=== PATIENT | male | born 1995 | race Caucasian/White ===

== ENCOUNTER 2019-01-24 22:16 | Emergency (ER) | payer SELFPAY ==
[2019-01-24 22:35] VITALS: BP 115/72; PULSE 114; TEMP 102.9; BMI 23.8
[2019-01-24] MEDS ORDERED: SODIUM CHLORIDE 1,000 ML IV STA (23:39)
[2019-01-24] MEDS ORDERED: ACETAMINOPHEN 1000 MG/100 ML VIAL (NON FORMULARY) IVPB ONE (23:39)
[2019-01-25] MEDS ORDERED: ACETAMINOPHEN INJECTION 100 ML IVPB ONE (00:37)
--- NOTE | 2019-01-25 00:46 | PDOC ---
History of Present Illness - General Chief Complaint: SIRS, Suspected/Possible Stated Complaint: FEVER/VOMITING Time Seen by Provider: 01/24/19 23:11 History Source: Patient - History of Present Illness Initial Comments: 01/25/19 00:42 Patient is a 23M with no significant medical history here today complaining of fever. Patient is concerned that several abrasions on his leg are infected. Endorses associated chills. Denies headache, neck pain, chest pain, cough, shortness of breath, dysuria, back pain and abdominal pain. Patient got abrasions on leg from sliding on ground while playing soccer. No sick contacts. No recent travel. Up to date on vaccines. Past History - Past Medical History Allergies/Adverse Reactions: Allergies Allergy/AdvReac Type Severity Reaction Status Date / Time No Known Allergies Allergy Verified 01/24/19 22:32 COPD: No - Suicide/Smoking/Psychosocial Hx Smoking History: Never smoked Review of Systems - Review of Systems Able to Perform ROS?: Yes Comments:: 01/25/19 00:43 GENERAL/CONSTITUTIONAL: +fever +chills. No weakness. HEAD, EYES, EARS, NOSE AND THROAT: No change in vision. No ear pain or discharge. No sore throat. CARDIOVASCULAR: No chest pain or shortness of breath RESPIRATORY: No cough, wheezing, or hemoptysis. GASTROINTESTINAL: No nausea, vomiting, diarrhea or constipation. GENITOURINARY: No dysuria, frequency, or change in urination. MUSCULOSKELETAL: No joint or muscle swelling or pain. No neck or back pain. SKIN: No rash NEUROLOGIC: No headache, vertigo, loss of consciousness, or change in strength/ sensation. ENDOCRINE: No increased thirst. No abnormal weight change HEMATOLOGIC/LYMPHATIC: No anemia, easy bleeding, or history of blood clots. ALLERGIC/IMMUNOLOGIC: No hives or skin allergy. *Physical Exam - Vital Signs Last Vital Signs Temp Pulse Resp BP Pulse Ox 102.9 F H 114 H 18 115/72 97 01/24/19 22:32 01/24/19 22:32 01/24/19 22:32 01/24/19 22:32 01/24/19 22:32 - Physical Exam Comments: 01/25/19 00:44 GENERAL: Awake, alert, and fully oriented, in no acute distress HEAD: No signs of trauma, normocephalic, atraumatic EYES: PERRLA, EOMI, sclera anicteric, conjunctiva clear ENT: Auricles normal inspection, hearing grossly normal, nares patent, oropharynx clear without exudates. Moist mucosa NECK: Normal ROM, supple, no lymphadenopathy, JVD, or masses LUNGS: No distress, speaks full sentences, clear to auscultation bilaterally HEART: Regular rate and rhythm, normal S1 and S2, no murmurs, rubs or gallops, peripheral pulses normal and equal bilaterally. ABDOMEN: Soft, nontender, normoactive bowel sounds. No guarding, no rebound. No masses EXTREMITIES: Normal inspection, Normal range of motion, no edema. No clubbing or cyanosis. NEUROLOGICAL: Cranial nerves II through XII grossly intact. Normal speech, normal gait, no focal sensorimotor deficits SKIN: Warm, Dry, several large abrasions on lateral left leg. Well healing, not warm, red or tender. ED Treatment Course - LABORATORY CBC & Chemistry Diagram: 01/25/19 00:41 01/25/19 00:41 Medical Decision Making - Medical Decision Making 01/25/19 00:45 Patient is 23M here today with fever. No signs of infection on abrasions. No clear source. Patient appears well. Will workup with cbc, cmp, lactate, blood cultures. Do not suspect serious infection at this time. Will treat with fluids , tylenol, and re-evaluate. 01/25/19 02:49 CBC normal. CMP shows mild elevations of liver enzymes. No abdominal pain on re-examination. Vital signs normalized. CXR clear. Will discharge home with diagnosis of fever. Patient given return precautions. Suspect primary viral process. *DC/Admit/Observation/Transfer Diagnosis at time of Disposition: Fever - Discharge Dispostion Disposition: HOME Condition at time of disposition: Good Decision to Admit order: No - Referrals - Patient Instructions Printed Discharge Instructions: DI for Fever (Symptom) -- Adult Additional Instructions: Please follow up with your primary care physician in the next 2-3 days. Please return if you have any new, worsening or concerning symptoms, especially increasing fever, headache, vomiting or abdominal pain. Albin un seguimiento con lozano mdico de atencin primaria en los prximos 2-3 mendez. Regrese si tiene algn sntoma nuevo, que empeora o preocupa, especialmente aumento de fiebre, dolor de ángel, vmitos o dolor abdominal. Print Language: SLOVAK - Post Discharge Activity
[2019-01-25 00:58] LABS: HEMATOCRIT 38.7 % (35.4-49); HEMOGLOBIN 13.1 GM/dL (11.7-16.9); MCHC 33.9 g/dl (32.0-35.9); MEAN CELL VOLUME 91.4 fl (80-96); MEAN PLT VOLUME 9.5 fl (7.5-11.1); PLATELET COUNT 241 K/MM3 (134-434); RBC 4.23 M/mm3 (4.00-5.60); RDW 14.8 % (11.9-15.9); WHITE BLOOD COUNT 10.3 K/mm3 (4.0-10.0)
[2019-01-25 01:23] LABS: ALBUMIN 2.7 g/dl (3.4-5.0); BILIRUBIN,TOTAL 0.7 mg/dL (0.2-1); BLOOD UREA NITROGEN 8.3 mg/dL (7-18); CALCIUM 8.2 mg/dL (8.5-10.1); CREATININE 0.8 mg/dL (0.55-1.3); POTASSIUM 3.5 mmol/L (3.5-5.1); TOT PROT 6.1 g/dl (6.4-8.2)
--- NOTE | 2019-01-25 02:55 | PDOC ---
Documentation entered by Steve Christianson SCRIBE, acting as scribe for Elizabeth Barrientos DO. Elizabeth Barrientos DO: This documentation has been prepared by the Sammy figueroa Elijah, SCRIBE, under my direction and personally reviewed by me in its entirety. I confirm that the documentation accurately reflects all work , treatment, procedures, and medical decision making performed by me. Attending Attestation - Resident Resident Name: Cole Carlson - ED Attending Attestation I have performed the following: I have examined & evaluated the patient, The case was reviewed & discussed with the resident, I agree w/resident's findings & plan - HPI HPI: 01/24/19 23:54 Patient is a 23 year old male who presents to the ED with an abrasion on his leg , fever, and body aches. Allergies: NKA - Physicial Exam PE: 01/24/19 23:57 Agree with Resident's exam. - Medical Decision Making 01/25/19 02:53 23-year-old male with fever and bodyaches Chest x-ray shows no acute consolidation There is some elevation of patient's transaminases which appears nonspecific Patient has no abdominal pain Leg abrasions are tender though there is no discharge or significant erythema Culture sent Patient feeling much better after IV fluids and IV Tylenol Plan for discharge home with strict instructions to return if his condition worsens in any way PCP follow-up will be recommended
== END 2019-01-25 03:00 | disposition home or self-care (01) ==
LOC: JER 22:16
PROC: 3E033NZ Introduction of Analgesics, Hypnotics, Sedatives into Peripheral Vein, Percutaneous Approach (ICD-10-PCS; principal; 2019-01-24)
PROC: 3E0337Z Introduction of Electrolytic and Water Balance Substance into Peripheral Vein, Percutaneous Approach (ICD-10-PCS; 2019-01-24)
DX: R50.9 Fever, unspecified (principal)
CPT/HCPCS: 36415; 71046-TC-FY; 80053; 83605; 85027; 99282-25; J0131; J7030